=== PATIENT | male | born 2000 | race Caucasian/White ===

== ENCOUNTER 2020-08-31 12:10 | Outpatient (RCR) | payer OTHER, SELFPAY | END 2020-10-17 23:59 | LOC: IMMUN 12:10 | PROVIDERS: Referring Provider Family Medicine; Visit Provider Family Medicine | DX: Z23 Encounter for immunization (principal) | CPT/HCPCS: 0001A; 0002A; 91300 ==

== ENCOUNTER 2020-11-14 13:10 | Emergency (ER) | payer OTHER, SELFPAY ==
[2020-11-14 13:11] VITALS: BP 143/85; PULSE 90; RESP 16; TEMP 36.2; O2SAT 98; BMI 24.4
--- NOTE | 2020-11-14 13:44 | CT_ITS ---
STUDY: CT FACIAL BONES WITHOUT CONTRAST REASON FOR EXAM: Male, 20 years old. Swelling and pain- right RADIATION DOSAGE (If Supplied By Facility): CTDIvol = ( 29.38 ) mGy, DLP = ( 606.22 ) mGycm TECHNIQUE: The patient was scanned in a multi detector CT scanner. Sagittal and coronal images were reconstructed. Individualized dose optimization techniques were used for this CT. COMPARISON: None. FINDINGS: Normal soft tissue structures. Normal orbital blanco and orbital contents. Normal nasal bones and anterior nasal spine. Normal facial bones. There is no demonstrated fracture. Minimal mucosal thickening at the base of the right maxillary sinus anteriorly. CT/Sinus/Facial Bone IMPRESSION: Minimal mucosal thickening in the base of the right maxillary sinus anteriorly. Electronically Signed: Haile Harding MD at 14:40 EDT , Service support ,
--- NOTE | 2020-11-14 13:44 | CT_ITS ---
STUDY: CT BRAIN WITHOUT CONTRAST REASON FOR EXAM: Male, 20 years old. 5 day history of headaches. RADIATION DOSAGE (If Supplied By Facility): CTDIvol = ( 44.99 ) mGy, DLP = ( 812.98 ) mGycm TECHNIQUE: Transaxial CT imaging of the brain was performed without administration of intravenous contrast material. Individualized dose optimization techniques were used for this CT. COMPARISON: No relevant priors. FINDINGS: Normal soft tissue structures. Normal calvarium. Normal size ventricles and extra-axial spaces for the patient''s age. Normal white matter tracts of the cerebral hemispheres. Normal basal ganglia and thalami. Normal brainstem. Normal cerebellum. There is no intracranial hemorrhage. There are no findings of an acute ischemic infarction. Minimal mucosal thickening along the anterior basal aspect of the right maxillary sinus. CT/Brain/Head without Contrast IMPRESSION: Normal unenhanced CT scan of the brain. Electronically Signed: Haile Harding MD at 14:39 EDT , Service support ,
[2020-11-14] MEDS: Acetaminophen 500 MG Tablet 1000 MG PO (14:42)
--- NOTE | 2020-11-14 14:47 | EX.ED.VIS.HA ---
HPI History of Present Illness Chief Complaint: Headache Informant: patient Onset/Context/Timing Onset: Days Narrative Narrative: Patient is 20-year-old male presenting with worsening headache and right-sided facial swelling. Patient states for the past 5 days he has had pain and swelling of the right side of his face as well as headache. His symptoms have been more severe over the past few days. He has nasal congestion and feels like he cannot breathe out of his right nose. He states the pain is on the right side of his face and goes all the way around his head. He denies any dental pain or bad teeth. He denies any sore throat but does feel like he has a swollen lymph node on his right anterior neck. He denies any fever or chills. Has had some intermittent photophobia but does not have any currently. Took Aleve at 5 AM has not had anything since. No chest pain, shortness of breath or difficulty breathing. No other complaints at this time. No sick contacts. PFSH PFSH no medical history Home Medications amoxicillin-pot clavulanate [Augmentin] 1 tab PO BID #20 tab 11/14/20 [Rx Last Taken Unknown] ibuprofen 600 mg PO Q6H PRN PRN #20 tab 11/14/20 [Rx Last Taken Unknown] Allergy/AdvReac Type Severity Reaction Status Date / Time No Known Allergies Allergy Verified 11/14/20 13:10 no significant family history no surgical history Social History Smoking Status: Never smoker ROS ROS ED Constitutional Constitutional ED: Denies chills, fever(s) or sweats Eyes Eyes: Denies blurry vision or change in vision ENT ENT ED: Reports ear pain right and other Details: Right-sided nasal congestion, right-sided facial swelling ; Denies rhinorrhea or sore throat Cardiovascular Cardiovascular: Denies chest pain or palpitations Respiratory/Chest Respiratory/Chest: Denies cough or dyspnea Gastrointestinal Gastrointestinal: Denies abdominal pain or vomiting Musculoskeletal Musculoskeletal: Denies arthralgias, myalgias or neck pain Integumentary Denies rash Neurologic Neurologic: Reports headache(s); Denies paresthesias or weakness Psychiatric Psychiatric: Denies anxiety or depression EXAM Physical Exam Const Vital Signs: 11/14/20 13:11 Temperature 97.1 F L Temperature Source Temporal Pulse Rate 90 Respiratory Rate 16 Blood Pressure 143/85 H Blood Pressure Mean 104 Pulse Ox 98 Oxygen Delivery Method Room Air Positive well nourished and well developed General Appearance ED: well developed HEENT Reports normocephalic, TM's clear and moist mucous membranes atraumatic Face and Sinus: sinus tenderness Positive for frontal (right) and maxillary (right), facial edema and facial tenderness right; Negative for face symmetric, facial erythema or fluctuance General Ear: hearing grossly impaired External Ear: external ears normal Tympanic Membrane ED: Yes TM's clear Mouth ED: Yes oral and palatal mucosa normal, Yes moist mucous membranes normal, No dysphonia and No muffled voice Mouth: oral and palatal mucosa normal, No dysphonia and No muffled voice Teeth and Gingiva: fair dentition Throat: posterior oropharynx normal and uvula midline Eyes PERRL and EOMs intact bilaterally Eyes Narrative: No exophthalmos Neck no lymphadenopathy, supple and no meningeal signs Neck Narrative: Anterior cervical chain lymphadenopathy present on the right. No overlying erythema or fluctuance. Resp normal respiratory effort and clear to auscultation bilaterally Cardio regular rate, regular rhythm and no murmurs GI non-tender and non-distended Palpation: soft Extremity normal to inspection Neuro oriented x3, CN's II-XII intact bilaterally and no sensory deficits noted Sensorium / Orientation: awake and alert Psych mental status grossly normal Skin Skin Narrative: Thickening of the skin at the base of the nose and over the maxillary sinuses, no discoloration present. Lesions: no lesions Rashes: no rashes MDM MDM MDM Narrative Medical decision making narrative: Patient evaluated for headache and facial swelling. He appears nontoxic in no acute distress. He does have associated headache and facial swelling. Is asymmetric. CT of the maxillary sinuses confirms that he has what looks like a right maxillary sinusitis and his head CT is negative. Patient initially treated with Tylenol and then given Augmentin and Motrin in the ER after the CT came back. He will be discharged home with referral to ENT. He is instructed to take [id number] decongestions and Afrin (from no more than 3 days) to help with his symptoms. He is given prescription for Augmentin and Motrin. Patient not having meningeal signs. I do not think he has any bony erosion that requires emergent surgical evaluation. Patient is counseled on signs and symptoms requiring return to the emergency room. Patient verbalizes agreement and understand this plan. Patient discharged home in stable and improved condition. Radiography Diagnostic Testing: Radiology Impression Brain CT 11/14/20 13:44 IMPRESSION: Normal unenhanced CT scan of the brain. Electronically Signed: Haile Harding MD at 14:39 EDT , Service support , Facial/Sinus 11/14/20 13:44 IMPRESSION: Minimal mucosal thickening in the base of the right maxillary sinus anteriorly. Electronically Signed: Haile Harding MD at 14:40 EDT , Service support , Discharge Plan Triage Chief Complaint: Headache ED Provider: Belen Newman Dx/Rx/DC Orders Clinical Impression: Sinusitis, acute maxillary Instructions: ED Sinusitis (Antibiotic Treatment) Prescriptions: New amoxicillin-pot clavulanate [Augmentin] 875-125 mg tablet 1 tab PO BID Qty: 20 RF: 0 ibuprofen 600 mg tablet 600 mg PO Q6H PRN PRN (Reason: Pain Score 1-10/10) Qty: 20 RF: 0 Primary Care Provider: Care Physician,No Primary Referrals: Reed Lemus MD [STAFF PHYSICIAN] - 1 Week if not improving Lino Marie MD [NON-STAFF] - Care Physician,No Primary [Primary Care Provider] - Activity Restrictions/Additional Instructions: Use [id number] decongestions such as Tylenol Cold and flu as well as Afrin to the right nose to help with your congestion. Do not use Afrin for more than 3 days in a row. Disposition Disposition: Home, Self Care
[2020-11-14] MEDS: Ibuprofen 600 MG Tablet PO (15:27)
[2020-11-14] MEDS: Amox/Clavulanate 875 MG Tablet PO (15:28)
== END 2020-11-14 15:42 | disposition home or self-care (01) ==
PROVIDERS: Emergency Provider Emergency Medicine
DX: J01.00 Acute maxillary sinusitis, unspecified (principal)
CPT/HCPCS: 70450; 70486; 99283